=== PATIENT | male | born 1995 | race Caucasian/White ===

== ENCOUNTER 2024-07-17 10:03 | Emergency (ER) | payer BC, SELFPAY ==
[2024-07-17] VITALS (7 sets, daily range): BP systolic 128–151; BP diastolic 76–90; PULSE 53–72; RESP 10–22; O2SAT 98–100; BMI 25.4
--- NOTE | 2024-07-17 10:19 | EKG_ITS ---
[address] [address] Test Date: 2024-07-17 Pat Name: Joni Rivera Department: Room: Gender: Male [employer] Developer: JUDAH : 1995 Requested By: Order Number: [id number] Reading MD: Sanchez Rodriguez Measurements Intervals [place] Rate: 62 P: 73 NE: 150 QRS: 65 QRSD: 100 T: 63 QT: 426 QTc: 432 Interpretive Statements Normal sinus rhythm Electronically Signed On 07-20-2024 17:07:57 PDT by Sanchez Rodriguez
--- NOTE | 2024-07-17 10:36 | DI.RAD.S_ITS ---
PROCEDURE: XR CHEST 1V INDICATIONS: Chest Pain TECHNIQUE: One view of the chest was acquired. COMPARISON: None. FINDINGS: Surgical changes and devices: None. Lungs and pleura: Lungs are clear. No pleural effusions or pneumothorax. Mediastinum: Mediastinal contours appear normal. Heart size is normal. Bones and chest wall: No suspicious bony lesions. Overlying soft tissues appear unremarkable. IMPRESSION: No acute cardiopulmonary pathology. Dictated by: Aldo Babin M.D. on 07/17/2024 at 11:07 Approved by: Aldo Babin M.D. on 07/17/2024 at 11:07
[2024-07-17 10:55] LABS: Add Manual Diff / Slide Review NO; Basophils Absolute Auto 0 /uL (0-100); Basophils Percent Auto 0.7 % (0-2); Eosinophils Absolute Auto 100 /uL (0-450); Eosinophils Percent Auto 1.4 % (2-4); Hematocrit 43.8 % (41-53); Hemoglobin 15.2 g/dL (13.5-17.5); INR 1.1 (0.9-1.3); Lymphocytes Absolute Auto 1700 /uL (1100-4500); Lymphocytes Percent Auto 36.3 % (25-40); Mean Corpuscular HGB Conc 34.7 % (30-36); Mean Corpuscular Hemoglobin 30.1 PG (26-34); Mean Corpuscular Volume 86.8 fL (80-100); Monocytes Absolute Auto 300 /uL (0-900); Monocytes Percent Auto 6.9 % (3-14); Neutrophils Absolute Auto 2600 /uL (1500-7000); Neutrophils Percent Auto 54.7 % (50-75); Platelet Count 219 X10^3/uL (150-400); Prothrombin Time 12.4 SECONDS (9.4-12.5); Red Blood Cell Count 5.05 X10^6/uL (4.5-5.9); Red Cell Distribution Width 12.9 % (11.6-14.8); White Blood Cell Count 4.7 X10^3/uL (4.5-11.0)
[2024-07-17 10:58] LABS: Alanine Aminotransferase 31 IU/L (<50); Albumin Globulin Ratio 1.7 (1.0-2.8); Alkaline Phosphatase 55 U/L (38-126); Aspartate Aminotransferase 33 IU/L (17-59); BUN Creatinine Ratio 13.4 (6-22); Bilirubin Total 1.4 mg/dL (0.2-1.3); Blood Urea Nitrogen 13 mg/dL (9-20); Calcium 10.2 mg/dL (8.4-10.2); Carbon Dioxide 27 mmol/L (22-32); Chloride 103 mmol/L (98-107); Creatine Kinase 159 U/L (55-170); Estimated Glomerular Filt Rate > 60 mL/min (>60); Globulin 2.9 g/dL (1.7-4.1); Glucose 93 mg/dL (70-99); HEMOLYSIS < 15 (0-50); Lipase 60 U/L (23-300); Magnesium 2.2 mg/dL (1.6-2.3); PTT Partial Thromboplastin Tim 41 SECONDS (25.1-36.5); Potassium 4.2 mmol/L (3.4-5.1); Sodium 139 mmol/L (137-145); Total Protein 7.9 g/dL (6.3-8.2)
[2024-07-17 11:08] LABS: NT-proBNP (BNP-Adult 18+) < 20 pg/mL (<125); Troponin I < 0.012 ng/mL (0.01-0.034)
--- NOTE | 2024-07-17 11:17 | ED.CHESTPAIN ---
HPI - Chest Pain General Chief Complaint: Chest Pain Stated Complaint: Chest and back pain. SOB and dizziness Time Seen by Provider: 07/17/24 11:17 Source: patient Mode of arrival: Ambulatory Limitations: no limitations History of Present Illness HPI narrative: Patient is a 29-year-old male with history of hypertension, presenting for chest pain. Patient states that he has been having intermittent chest pains over the course of the last 5 days. It initially woke him from sleep. Pain is described as midline chest, slightly to the left. Patient denies any trauma to the area, he has had no recent illness, cough, shortness of breath. Has been compliant with his antihypertensive medications. Patient denies any palpitations. Pain is not worsened with deep breathing. Patient without family history of concerning cardiac history. MD complaint: chest pain Onset (ago): day(s) (5) Related Data Home Medications Medication Instructions Recorded Confirmed No Known Home Medications 07/17/24 07/17/24 Allergies Allergy/AdvReac Type Severity Reaction Status Date / Time No Known Drug Allergies Allergy Unverified 07/17/24 10:06 Review of Systems Review of Systems ROS Unobtainable: All systems reviewed & are unremarkable except as noted in HPI and below Constitutional Constitutional: Denies fever(s) and Denies weakness Eyes Eyes: Denies loss of vision ENT Ears, Nose, Mouth, and Throat: Denies dizziness Cardiovascular Cardiovascular: Reports chest pain, Denies chest pain with activity and Denies palpitations Respiratory Respiratory: Denies cough Gastrointestinal Gastrointestinal: Denies vomiting Neurologic Neurologic: Denies dizziness, Denies loss of vision and Denies weakness Endocrine Endocrine: Denies palpitations Patient History tobacco type: smokeless tobacco Exam Narrative Exam Narrative: GEN: AOx3 and in no acute distress distress EYES: Pupils are equal, round, and reactive to light and accommodation. Extraoccular muscles are intact bilaterally. There is no subconjunctival hemorrhage or exudate. CHEST: Lungs are clear to auscultation bilaterally and free of wheezes, rales, or rhonchi. Heart rate is regular rhythm, there are no murmurs, clicks, rubs, or gallops. There is no chest wall tenderness. ABD: Abdomen is soft and nontender. There is no guarding or rebound. Bowel sounds are normal in all 4 quadrants. There is no mass or organomegaly. EXT: Full painless ROM of all extremities with no loss of sensation or strength. No peripheral edema SKIN: Warm, pink, and dry. No erythema or rash Initial Vital Signs Initial Vital Signs: Vital Signs Pulse Rate 72 07/17/24 10:11 Respiratory Rate 18 07/17/24 10:11 Blood Pressure 149/87 H 07/17/24 10:11 Pulse Oximetry 100 07/17/24 10:11 Oxygen Delivery Method Room Air 07/17/24 10:11 Course Orders Ordered: Discontinued Medications Aspirin (Aspirin 81 Mg Chew Tab) 324 mg PO NOW ONE Stop: 07/17/24 10:37 Last Admin: 07/17/24 11:44 Dose: Not Given Documented By: BHUMI Vital Signs Vital signs: Vital Signs - 8 hr 07/17/24 10:11 Pulse Rate 72 Respiratory Rate 18 Blood Pressure 149/87 H Pulse Oximetry 100 Oxygen Delivery Method Room Air MDM - Chest Pain Lab Data Attestation: I reviewed the patient's lab results. Lab results narrative: Normal CBC, CMP without acute abnormality 07/17/24 10:30 07/17/24 10:30 Labs: Lab Results 07/17/24 07/17/24 Range/Units 10:30 11:59 WBC 4.7 (4.5-11.0) X10^3/uL RBC 5.05 (4.5-5.9) X10^6/uL Hgb 15.2 (13.5-17.5) g/dL Hct 43.8 (41-53) % MCV 86.8 (80-100) fL MCH 30.1 (26-34) PG MCHC 34.7 (30-36) % RDW 12.9 (11.6-14.8) % Plt Count 219 (150-400) X10^3/uL Neut % (Auto) 54.7 (50-75) % Lymph % (Auto) 36.3 (25-40) % [place]rick % (Auto) 6.9 (3-14) % Eos % (Auto) 1.4 L (2-4) % Baso % (Auto) 0.7 (0-2) % Neut # (Auto) 2600 (8148-9690) /uL Lymph # (Auto) 1700 (2564-0547) /uL Warrick # (Auto) 300 (0-900) /uL Eos # (Auto) 100 (0-450) /uL Baso # (Auto) 0 (0-100) /uL PT 12.4 (9.4-12.5) SECONDS INR 1.1 (0.9-1.3) APTT 41 H (25.1-36.5) SECONDS Sodium 139 (137-145) mmol/L Potassium 4.2 (3.4-5.1) mmol/L Chloride 103 (98-107) mmol/L Carbon Dioxide 27 (22-32) mmol/L BUN 13 (9-20) mg/dL Creatinine 0.97 (0.66-1.25) mg/dL Estimated GFR > 60 (>60) mL/min BUN/Creatinine Ratio 13.4 (6-22) Glucose 93 (70-99) mg/dL Calcium 10.2 (8.4-10.2) mg/dL Magnesium 2.2 (1.6-2.3) mg/dL Total Bilirubin 1.4 H (0.2-1.3) mg/dL AST 33 (17-59) IU/L ALT 31 (<50) IU/L Alkaline Phosphatase 55 (38-126) U/L Total Creatine Kinase 159 (55-170) U/L Troponin I < 0.012 < 0.012 (0.01-0.034) ng/mL NT-Pro-B Natriuret Pep < 20 (<125) pg/mL Total Protein 7.9 (6.3-8.2) g/dL Albumin 5.0 (3.5-5.0) g/dL Globulin 2.9 (1.7-4.1) g/dL Albumin/Globulin Ratio 1.7 (1.0-2.8) Lipase 60 (23-300) U/L Imaging Data Chest x-ray: Attestation: I personally reviewed and interpreted this imaging study as follows: My Impression: X-ray without evidence of pneumothorax, dense focal consolidation, pleural effusion Radiologist's Impression: [address] [address] XRay Report Signed Patient: Joni Rivera MR#: [id number] : 1995 Acct:[id number] Age/Sex: 29 / M Date of Service: 07/17/24 Loc: ED Accession Number: [id number] Procedure: XR chest 1V Ordering Provider: Indu Hayes MD PROCEDURE: XR CHEST 1V INDICATIONS: Chest Pain TECHNIQUE: One view of the chest was acquired. COMPARISON: None. FINDINGS: Surgical changes and devices: None. Lungs and pleura: Lungs are clear. No pleural effusions or pneumothorax. Mediastinum: Mediastinal contours appear normal. Heart size is normal. Bones and chest wall: No suspicious bony lesions. Overlying soft tissues appear unremarkable. IMPRESSION: No acute cardiopulmonary pathology. Dictated by: Aldo Babin M.D. on 07/17/2024 at 11:07 Approved by: Aldo Babin M.D. on 07/17/2024 at 11:07 ECG Data Attestation: I personally reviewed and interpreted this ECG as follows: Prior ECG tracings: not available for review Interpretation: EKG demonstrating sinus rhythm at a rate of 62, MA interval 150, QTC 432, without evidence of acute ischemic changes no prior for comparison MDM Narrative Medical decision making narrative: History and exam as above. Patient presenting with 5 days of chest pain. Pain is not worsened with exertion, and with no clear triggers or alleviating factors. Differential presentation is broad and includes ACS although this is less likely without comorbidities or risk factors, similarly unlikely to represent PE without tachycardia, pleuritic pain, risk factors. Differential similarly includes costochondritis, pericarditis, pneumothorax, pleural effusion, contusion, rib fracture. Workup including labs, EKG, x-ray performed and without evidence of acute abnormality. Patient counseled regarding close follow-up, referral placed for Cardiology as needed for further workup and management. Similarly counseled regarding establishment of care with PCP and follow up. Discharge Plan Departure Patient Disposition: Home Clinical Impression: Chest pain Instructions: DI for Chest Pain Activity Restrictions/Additional Instructions: You were seen in the emergency department for your chest pain. Evaluation here including examination, lab work, x-ray imaging was overall reassuring and did not demonstrate any evidence of an acute process that would require intervention or admission to the hospital this time. Please follow up closely with the primary care provider, a referral has also been placed for you to be evaluated by Cardiology. If you develop recurrent severe chest pain, lightheadedness or syncope, worsening shortness of breath, fevers, chills, worsening cough, or other symptoms that are concerning to you, please return to the emergency department for further evaluation. Prescriptions: No Action No Known Home Medications Referrals: Miscellaneous,MD Omid [Primary Care Provider] - Lisbet Gray MD [Physician] - As soon as possible Stand Alone Forms: Patient Portal/API/Survey
[2024-07-17 12:27] LABS: Troponin I < 0.012 ng/mL (0.01-0.034)
== END 2024-07-17 13:03 | disposition home or self-care (01) ==
PROVIDERS: Emergency Provider Student in an Organized Health Care Education/Training Program
DX: R07.9 Chest pain, unspecified (principal)
CPT/HCPCS: 36415; 71045; 80053; 82550; 83690; 83735; 83880; 84484; 85025; 85610; 85730; 93005; 99283; 99284